=== PATIENT | male | born 1965 | race Caucasian/White ===

== ENCOUNTER 2016-10-09 01:43 | Emergency (ER) | payer BC, OTHER ==
[2016-10-09 02:01] VITALS: RESP 18
[2016-10-09] MEDS ORDERED: DIPH,PERTUS(ACELL)TETVAC-LF 0.5 ML VIAL IM ONE (02:09)
[2016-10-09] MEDS ORDERED: SODIUM CHLORIDE 0.9% 1,000 ML IV STA ×2 (02:09→03:21)
[2016-10-09] MEDS ORDERED: HYDROmorphone 1 MG/ML 1 ML SYRINGE IVP STA ×3 (02:09→05:21)
[2016-10-09] MEDS ORDERED: RX INFO: IV CONTRAST WAS GIVEN 1 EACH MISC MISCELLANE PRN (02:09)
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
[2016-10-09 02:59] LABS: Basophils % (A) 0 %; CH 30.8; CHCM 32.8; Eosinophils # (A) 0.2 k/uL (0-0.7); Eosinophils % (A) 2 %; HCT 37.6 % (39.0-53.0); HGB 12.4 gm/dL (13.0-17.5); Luc # (Auto) 0.09; Luc % (Auto) 1; Lymphocytes % (A) 11 %; MCH 31.1 pg (25.0-35.0); MCV 94.2 fL (80.0-100.0); Mean Platelet Volume 7.4; Monocytes # (A) 0.4 k/uL (0-1.0); Monocytes % (A) 5 %; Neutrophils # (A) 7.5 k/uL (1.3-7.7); Neutrophils % (A) 81 %; RBC 3.99 m/uL (4.30-5.90); RDW 12.4 % (11.5-15.5); WBC 9.2 k/uL (3.8-10.6); WBC (Perox) 9.52
[2016-10-09 03:09] LABS: ALT 48 U/L (21-72); AST 36 U/L (17-59); Alkaline Phosphatase 64 U/L (38-126); Anion Gap 12 mmol/L; Blood Urea Nitrogen 33 mg/dL (9-20); Calcium 10.1 mg/dL (8.4-10.2); Carbon Dioxide 23 mmol/L (22-30); Chloride 106 mmol/L (98-107); Glucose 209 mg/dL (74-99); Non-African American GFR(MDRD) 53 (>60 ml/min/1.73 sqM); Potassium 4.1 mmol/L (3.5-5.1); Sodium 141 mmol/L (137-145); Total Bilirubin 0.8 mg/dL (0.2-1.3); Total Protein 7.5 g/dL (6.3-8.2)
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
[2016-10-09] MEDS ORDERED: ETOMIDATE 2 MG/ML 10 ML VIAL IV STA (04:28)
[2016-10-09 05:34] VITALS: PULSE 93
[2016-10-09 05:44] VITALS: BP 182/78
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
[2016-10-09 06:03] VITALS: TEMP 97.9
== END 2016-10-09 06:08 | disposition short-term general hospital (02) ==
LOC: EC 01:43
DX: S72.092A Other fracture of head and neck of left femur, initial encounter for closed fracture (principal); S32.402A Unspecified fracture of left acetabulum, initial encounter for closed fracture; S51.012A Laceration without foreign body of left elbow, initial encounter; S30.1XXA Contusion of abdominal wall, initial encounter; I10 Essential (primary) hypertension; E78.5 Hyperlipidemia, unspecified; E11.9 Type 2 diabetes mellitus without complications; Z23 Encounter for immunization; Z87.891 Personal history of nicotine dependence; Z79.84 Long term (current) use of oral hypoglycemic drugs; Z79.899 Other long term (current) drug therapy; V43.52XA Car driver injured in collision with other type car in traffic accident, initial encounter; Y92.410 Unspecified street and highway as the place of occurrence of the external cause
CPT/HCPCS: 99291; 27268; 90471; 96374; 96376 ×2; 96361 ×4; 36415; 86900; 86901; 80053; 85025; 86850; 73501; 73502; 73080; 71260; 74177; 90715; J1170; Q9967

== ENCOUNTER 2020-12-24 15:13 | Observation (INO) | payer BC, OTHER ==
[2020-12-24] MEDS ORDERED: cefTRIAXone IN SWFI 1,000 MG/10 ML SYRINGE IVP STA (15:54)
[2020-12-24] MEDS ORDERED: SODIUM CHLORIDE 0.9% 1,000 ML IV STA (15:54)
--- NOTE | 2020-12-24 16:14 | ED ---
Skin/Abscess/FB HPI - General Chief complaint: Skin/Abscess/Foreign Body Stated complaint: lump on neck Time Seen by Provider: 12/24/20 15:43 Source: patient Mode of arrival: ambulatory Limitations: no limitations - History of Present Illness Initial comments: 55-year-old male presents emergency Department with a chief complaint of neck swelling. Patient reports he noticed some neck discomfort and continues cough about one month ago. States he went to an urgent care and was given cough medicine. States her last few weeks he has developed progressive loss of his voice with no significant sore throat fever or chills. However, the swelling on the left side of his neck has continued to increase in size. Denies overlying cellulitic skin changes. Denies any difficulty swallowing or breathing. Former smoker but quit about 10 years ago. Diabetic. Denies any visual changes, headaches, one-sided weakness or paresthesias. Denies any lightheadedness or dizziness. - Related Data Home Medications Medication Instructions Recorded Confirmed Levothyroxine Sodium [Synthroid] 50 mcg PO QAM 07/12/14 07/13/14 Losartan [Cozaar] 50 mg PO QAM 07/12/14 07/13/14 Simvastatin [Zocor] 10 mg PO HS 07/12/14 07/13/14 glyBURIDE [Diabeta] 2.5 mg PO BID 07/12/14 07/13/14 metFORMIN HCL [Glucophage] 1,000 mg PO BID 07/12/14 07/13/14 Allergies Allergy/AdvReac Type Severity Reaction Status Date / Time No Known Allergies Allergy Verified 12/24/20 15:42 Review of Systems ROS Statement: Those systems with pertinent positive or pertinent negative responses have been documented in the HPI. ROS Other: All systems not noted in ROS Statement are negative. Past Medical History Past Medical History: Diabetes Mellitus, Hyperlipidemia, Hypertension Additional Past Medical History / Comment(s): HX POLYPS History of Any Multi-Drug Resistant Organisms: None Reported Past Surgical History: Orthopedic Surgery Additional Past Surgical History / Comment(s): COLONOSCOPY Past Anesthesia/Blood Transfusion Reactions: No Reported Reaction Past Psychological History: No Psychological Hx Reported Smoking Status: Former smoker Past Alcohol Use History: Daily Past Drug Use History: None Reported - Past Family History Mother Family Medical History: No Reported History General Exam Limitations: no limitations General appearance: alert, in no apparent distress Head exam: Present: atraumatic, normocephalic, normal inspection Eye exam: Present: normal appearance, PERRL, EOMI Pupils: Present: normal accommodation ENT exam: Present: normal exam, normal oropharynx (No tonsillar erythema or enlargement or exudates. Uvula midline. No Dillon's angina or peritonsillar abscess), mucous membranes moist, TM's normal bilaterally, normal external ear exam Neck exam: Present: tenderness (Tenderness in the region), full ROM, lymphadenopathy. Absent: normal inspection (Swelling on the left side of neck) Respiratory exam: Present: normal lung sounds bilaterally. Absent: respiratory distress, wheezes, rales Cardiovascular Exam: Present: regular rate, normal rhythm, normal heart sounds Extremities exam: Present: normal inspection, full ROM. Absent: tenderness Back exam: Present: normal inspection, full ROM Neurological exam: Present: alert, oriented X3 Psychiatric exam: Present: normal affect, normal mood Skin exam: Present: warm, dry, intact, normal color Course Vital Signs 12/24/20 12/24/20 12/24/20 15:40 16:42 17:00 Temperature 98.6 F Pulse Rate 102 H 83 83 Respiratory 16 16 16 Rate Blood Pressure 131/67 154/87 154/87 O2 Sat by Pulse 95 97 97 Oximetry Medical Decision Making - Medical Decision Making 55-year-old male presents emergency Department with a chief complaint of neck swelling. CT shows left-sided neck mass which could be necrotic lymph node. Abscess cannot be excluded. There is large laryngeal mass encroaching on the laryngeal [place] suspicious for tumor. This could explain the patient's changes to voice. On physical examination, no signs of tonsillar enlargement order to suggest a peritonsillar abscess. No Dillon's angina. Laboratory work is unremarkable. I will start him on Rocephin. Will admit him for further medical management and ENT consult. I discussed the case with BERT Mayer who will admit for Dr. Anderson. Case discussed with Dr. Castro. - Lab Data Result diagrams: 12/24/20 16:08 12/24/20 16:08 Lab Results 12/24/20 12/24/20 12/24/20 Range/Units 16:08 16:08 16:08 WBC 7.0 (3.8-10.6) k/uL RBC 4.66 (4.30-5.90) m/uL Hgb 14.2 (13.0-17.5) gm/dL Hct 42.8 (39.0-53.0) % MCV 92.0 (80.0-100.0) fL MCH 30.5 (25.0-35.0) pg MCHC 33.2 (31.0-37.0) g/dL RDW 12.8 (11.5-15.5) % Plt Count 214 (150-450) k/uL MPV 7.6 Neutrophils % 69 % Lymphocytes % 19 % Monocytes % 6 % Eosinophils % 4 % Basophils % 1 % Neutrophils # 4.8 (1.3-7.7) k/uL Lymphocytes # 1.3 (1.0-4.8) k/uL Monocytes # 0.4 (0-1.0) k/uL Eosinophils # 0.2 (0-0.7) k/uL Basophils # 0.0 (0-0.2) k/uL Sodium 139 (137-145) mmol/L Potassium 4.2 (3.5-5.1) mmol/L Chloride 103 (98-107) mmol/L Carbon Dioxide 26 (22-30) mmol/L Anion Gap 10 mmol/L BUN 21 H (9-20) mg/dL Creatinine 1.24 (0.66-1.25) mg/dL Est GFR (CKD-EPI)AfAm 75 (>60 ml/min/1.73 sqM) Est GFR (CKD-EPI)NonAf 65 (>60 ml/min/1.73 sqM) Glucose 165 H (74-99) mg/dL Plasma Lactic Acid Kiran 1.2 (0.7-2.0) mmol/L Calcium 9.7 (8.4-10.2) mg/dL Total Bilirubin 0.7 (0.2-1.3) mg/dL AST 22 (17-59) U/L ALT 18 (4-49) U/L Alkaline Phosphatase 97 (38-126) U/L Total Protein 7.4 (6.3-8.2) g/dL Albumin 4.4 (3.5-5.0) g/dL Disposition Clinical Impression: Neck mass Disposition: ADMITTED IP TO THIS HOSP Condition: Good Is patient prescribed a controlled substance at d/c from ED?: No Referrals: Bob Mcginnis MD [Primary Care Provider] - 1-2 days Time of Disposition: 17:45
[2020-12-24 16:22] LABS: Basophils % (A) 1 %; Eosinophils # (A) 0.2 k/uL (0-0.7); Eosinophils % (A) 4 %; HCT 42.8 % (39.0-53.0); HGB 14.2 gm/dL (13.0-17.5); Lymphocytes # (A) 1.3 k/uL (1.0-4.8); Lymphocytes % (A) 19 %; MCH 30.5 pg (25.0-35.0); MCHC 33.2 g/dL (31.0-37.0); Mean Platelet Volume 7.6; Monocytes # (A) 0.4 k/uL (0-1.0); Monocytes % (A) 6 %; Neutrophils # (A) 4.8 k/uL (1.3-7.7); Neutrophils % (A) 69 %; Platelet Count 214 k/uL (150-450); RBC 4.66 m/uL (4.30-5.90); RDW 12.8 % (11.5-15.5)
[2020-12-24 16:28] LABS: Albumin 4.4 g/dL (3.5-5.0); Calcium 9.7 mg/dL (8.4-10.2); Potassium 4.2 mmol/L (3.5-5.1); Total Bilirubin 0.7 mg/dL (0.2-1.3); Total Protein 7.4 g/dL (6.3-8.2)
--- NOTE | 2020-12-24 17:15 | CT ---
EXAMINATION TYPE: CT soft tissue neck w con DATE OF EXAM: 12/24/2020 COMPARISON: None HISTORY: left sided neck swelling CT DLP: 217.5 mGycm Automated exposure control for dose reduction was used. CONTRAST: Performed with IV Contrast, patient injected with 100 mL of Isovue 300. Images obtained from the thoracic inlet to the top of the frontal sinuses with IV contrast. Thyroid gland is symmetric. There is opacification of the carotid arteries and jugular veins. There i s arterial flow in the vertebral arteries. There is a low density irregular mass that measures 4.8 x 3.7 cm in the anterior neck on the left side. This appears to have central fluid component and the wa ll is irregular measuring up to 8 mm. This is elevating the sternocleidomastoid mastoid muscle. There is symmetric normal appearance of the submandibular salivary glands. There is asymmetric increased s oft tissue density in the larynx on the left side and soft tissue density seen in the left side laryn geal ventricle. This mass measures 4.8 x 1.9 cm. There are some destructive changes seen in the adjac ent thyroid cartilage ossification. The parotid glands are symmetric. Some thickening of the soft palate and the adenoids. There is narro wing of the nasopharyngeal airway. There is fairly normal aeration of the paranasal sinuses. There is normal aeration of the mastoid sin uses. The temporal bones are intact. The cervical vertebra have normal alignment. There is degenerative spur formation anteriorly in the l ower cervical spine. There is no compression fracture. Facet joints are intact. The tonsils are joshua l in size. IMPRESSION: Large low density left side neck mass could be a necrotic lymph node. Abscess not excluded. There is large laryngeal mass encroaching on the laryngeal airway suspicious for tumor.
[2020-12-24] MEDS ORDERED: NALOXONE 0.4 MG/ML 1 ML VIAL IV PRN (17:41)
[2020-12-24] MEDS: SODIUM CHLORIDE 0.9% 1,000 ML IV SCH (19:22)
[2020-12-24 23:38] LABS: Glucose,Whole Blood 237 mg/dL (75-99)
[2020-12-24] MEDS ORDERED: ONDANSETRON 4 MG/2 ML VIAL IVP PRN (23:43)
[2020-12-24] MEDS ORDERED: LORazepam 2 MG/ML INJ IV PRN ×3 (23:44)
[2020-12-24] MEDS ORDERED: ATORVASTATIN 10 MG TAB PO SCH (23:45)
[2020-12-25] MEDS ORDERED: INSULIN DETEMIR (LEVEMIR) 100 UNIT/ML SYR SQ SCH
[2020-12-25] MEDS: INSULIN ASPART (NovoLOG) 100 UNIT/ML VIAL SQ SCH ×3 (00:13→13:14)
[2020-12-25] MEDS: HYDROmorphone 0.5 MG/0.5 ML SYRINGE IVP PRN ×3 (00:13→13:16)
[2020-12-25 07:16] LABS: Glucose,Whole Blood 79 mg/dL (75-99)
[2020-12-25] MEDS: SODIUM CHLORIDE 0.9% 1,000 ML IV SCH (08:38)
[2020-12-25] MEDS ORDERED: THIAMINE 100 MG TAB PO SCH (09:00)
[2020-12-25 09:42] LABS: Basophils % (A) 0 %; Eosinophils # (A) 0.2 k/uL (0-0.7); Eosinophils % (A) 4 %; HCT 39.3 % (39.0-53.0); HGB 12.8 gm/dL (13.0-17.5); Lymphocytes # (A) 1.2 k/uL (1.0-4.8); Lymphocytes % (A) 19 %; MCH 30.3 pg (25.0-35.0); MCHC 32.5 g/dL (31.0-37.0); MCV 93.2 fL (80.0-100.0); Mean Platelet Volume 7.7; Monocytes # (A) 0.3 k/uL (0-1.0); Monocytes % (A) 5 %; Neutrophils # (A) 4.2 k/uL (1.3-7.7); Neutrophils % (A) 70 %; Platelet Count 180 k/uL (150-450); RBC 4.22 m/uL (4.30-5.90); RDW 12.7 % (11.5-15.5)
[2020-12-25 10:04] LABS: African American GFR (CKD) 83 (>60 ml/min/1.73 sqM); Anion Gap 6 mmol/L; Blood Urea Nitrogen 21 mg/dL (9-20); Calcium 8.7 mg/dL (8.4-10.2); Carbon Dioxide 28 mmol/L (22-30); Chloride 104 mmol/L (98-107); Glucose 159 mg/dL (74-99); Non-African American GFR(CKD) 72 (>60 ml/min/1.73 sqM); Potassium 3.9 mmol/L (3.5-5.1); Sodium 138 mmol/L (137-145)
[2020-12-25 11:05] LABS: Glucose,Whole Blood 232 mg/dL (75-99)
[2020-12-25 11:34] VITALS: BP 137/69; PULSE 71; RESP 20; TEMP 98.7
[2020-12-25] MEDS ORDERED: PIOGLITAZONE 30 MG TAB PO SCH (13:30)
[2020-12-25] MEDS ORDERED: [UNRECOGNIZED DRUG - OTHER] PO SCH (13:30)
[2020-12-25] MEDS ORDERED: METFORMIN HCL PO SCH (13:30)
[2020-12-25] MEDS ORDERED: DAPAGLIFLOZIN PO SCH (13:30)
--- NOTE | 2020-12-25 15:07 | P.GSCN ---
History of Present Illness Consult date: 12/25/20 History of present illness: CHIEF COMPLAINT: Neck mass HISTORY OF PRESENT ILLNESS: This is a 55-year-old male with prior history of smoking quit about 10 years ago, diabetes mellitus, hyperlipidemia and hypertension. Patient presents to emergency room with complaints of neck swelling and mass. He states he noticed increase in his left neck swelling started about 2 months ago. He has been having pain in his neck. He also reports progressive loss of his voice and his been having a cough. He has become concerned since the left side of his neck continues to increase in size. Denies any cellulitis type changes of the skin at the neck. Denies any fever chills or sweats. Denies any weight loss. PAST MEDICAL HISTORY: See list. PAST SURGICAL HISTORY: See list. MEDICATIONS: See list. ALLERGIES: See list. SOCIAL HISTORY: No illicit drug use. REVIEW OF SYSTEMS: CONSTITUTIONAL: Denies fever or chills. HEENT: Denies blurred vision, vision changes, or eye pain. Denies hemoptysis CARDIOVASCULAR: Denies chest pain or pressure. RESPIRATORY: No shortness of breath. GASTROINTESTINAL: Denies any nausea or vomiting. Denies any change in bowel habits HEMATOLOGIC: Denies bleeding disorders. GENITOURINARY: Denies any blood in urine or increased urinary frequency. SKIN: Denies pruitis. Denies rash. PHYSICAL EXAM: VITAL SIGNS: Reviewed GENERAL: Well-developed in no acute distress. HEENT: Patient has large swelling noted on the left side of his neck. No discoloration of the skin. Tender with palpation. No sclera icterus. Extraocular movements grossly intact. Moist buccal mucosa. Head is atraumatic, normocephalic. No nasal drainage. ABDOMEN: Soft. Nondistended. Nontender NEUROLOGIC: Alert and oriented. Cranial nerves II through XII grossly intact. LABORATORY DATA: IMAGING: Computed tomography scan of the neck shows large low-density left-sided neck mass could be a necrotic lymph node. Abscess not excluded. There is large laryngeal mass encroaching on the laryngeal airway suspicious for tumor. ASSESSMENT: 1. 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 Signing provider agrees with the documented findings, assessment, and plan of care. Past Medical History Past Medical History: Diabetes Mellitus, Hyperlipidemia, Hypertension, Thyroid Disorder Additional Past Medical History / Comment(s): HX POLYPS History of Any Multi-Drug Resistant Organisms: None Reported Past Surgical History: Orthopedic Surgery Additional Past Surgical History / Comment(s): COLONOSCOPY Past Anesthesia/Blood Transfusion Reactions: No Reported Reaction Past Psychological History: Depression Smoking Status: Former smoker Past Alcohol Use History: Daily Additional Past Alcohol Use History / Comment(s): QUIT SMOKING APPROX 2009, SMOKED APPROX 35 YRS. Admits to drinking beers daily Past Drug Use History: None Reported - Past Family History Mother Family Medical History: No Reported History Medications and Allergies Home Medications Medication Instructions Recorded Confirmed Type Simvastatin [Zocor] 10 mg PO HS 07/12/14 12/24/20 History Dapagliflozin/Metformin HCl 1 tab PO BID 12/24/20 12/24/20 History [Xigduo Xr 5 mg-500 mg Tablet] Dulaglutide [Trulicity] 1.5 mg SQ MO 12/24/20 12/24/20 History Ferrous Sulfate [Iron] 325 mg PO DAILY 12/24/20 12/24/20 History Insulin Glargine,Hum.rec.anlog 20 unit SQ HS 12/24/20 12/24/20 History [Lantus Solostar] Insulin Lispro [humaLOG Kwikpen] 5 unit SQ AC-TID 12/24/20 12/24/20 History Insulin Lispro [humaLOG Kwikpen] See Protocol SQ AC-TID 12/24/20 12/24/20 His tory Levothyroxine Sodium [Synthroid] 25 mcg PO DAILY 12/24/20 12/24/20 History Losartan [Cozaar] 25 mg PO DAILY 12/24/20 12/24/20 History Pioglitazone [Actos] 30 mg PO DAILY 12/24/20 12/24/20 History Allergies Allergy/AdvReac Type Severity Reaction Status Date / Time No Known Allergies Allergy Verified 12/24/20 17:50 Surgical - Exam Vital Signs Temp Pulse Resp BP Pulse Ox 98.6 F 102 H 16 131/67 95 12/24/20 15:40 12/24/20 15:40 12/24/20 15:40 12/24/20 15:40 12/24/20 15:40 Results - Labs 12/25/20 09:12/25/20 09:04 Abnormal Lab Results - Last 24 Hours (Table) 12/24/20 12/24/20 12/25/20 Range/Units 16:08 23:36 09:04 RBC 4.22 L (4.30-5.90) m/uL Hgb 12.8 L (13.0-17.5) gm/dL BUN 21 H (9-20) mg/dL Glucose 165 H (74-99) mg/dL POC Glucose (mg/dL) 237 H (75-99) mg/dL 12/25/20 12/25/20 Range/Units 09:04 11:03 RBC (4.30-5.90) m/uL Hgb (13.0-17.5) gm/dL BUN 21 H (9-20) mg/dL Glucose 159 H (74-99) mg/dL POC Glucose (mg/dL) 232 H (75-99) mg/dL Diabetes panel 12/24/20 12/25/20 Range/Units 16:08 09:04 Sodium 139 138 (137-145) mmol/L Potassium 4.2 3.9 (3.5-5.1) mmol/L Chloride 103 104 (98-107) mmol/L Carbon Dioxide 26 28 (22-30) mmol/L BUN 21 H 21 H (9-20) mg/dL Creatinine 1.24 1.13 (0.66-1.25) mg/dL Glucose 165 H 159 H (74-99) mg/dL Calcium 9.7 8.7 (8.4-10.2) mg/dL AST 22 (17-59) U/L ALT 18 (4-49) U/L Alkaline Phosphatase 97 (38-126) U/L Total Protein 7.4 (6.3-8.2) g/dL Albumin 4.4 (3.5-5.0) g/dL Calcium panel 12/24/20 12/25/20 Range/Units 16:08 09:04 Calcium 9.7 8.7 (8.4-10.2) mg/dL Albumin 4.4 (3.5-5.0) g/dL Pituitary panel 12/24/20 12/25/20 Range/Units 16:08 09:04 Sodium 139 138 (137-145) mmol/L Potassium 4.2 3.9 (3.5-5.1) mmol/L Chloride 103 104 (98-107) mmol/L Carbon Dioxide 26 28 (22-30) mmol/L BUN 21 H 21 H (9-20) mg/dL Creatinine 1.24 1.13 (0.66-1.25) mg/dL Glucose 165 H 159 H (74-99) mg/dL Calcium 9.7 8.7 (8.4-10.2) mg/dL Adrenal panel 12/24/20 12/25/20 Range/Units 16:08 09:04 Sodium 139 138 (137-145) mmol/L Potassium 4.2 3.9 (3.5-5.1) mmol/L Chloride 103 104 (98-107) mmol/L Carbon Dioxide 26 28 (22-30) mmol/L BUN 21 H 21 H (9-20) mg/dL Creatinine 1.24 1.13 (0.66-1.25) mg/dL Glucose 165 H 159 H (74-99) mg/dL Calcium 9.7 8.7 (8.4-10.2) mg/dL Total Bilirubin 0.7 (0.2-1.3) mg/dL AST 22 (17-59) U/L ALT 18 (4-49) U/L Alkaline Phosphatase 97 (38-126) U/L Total Protein 7.4 (6.3-8.2) g/dL Albumin 4.4 (3.5-5.0) g/dL
[2020-12-25] MEDS ORDERED: INSULIN ASPART (NovoLOG) 100 UNIT/ML VIAL SQ SCH (17:30)
[2020-12-26] MEDS ORDERED: LEVOTHYROXINE 25 MCG TAB PO SCH (06:30)
--- NOTE | 2020-12-26 07:10 | CONS ---
CONSULTATION DATE OF CONSULTATION: 12/25/2020 REASON FOR CONSULTATION: Left neck mass. HISTORY OF PRESENT ILLNESS: The patient is a pleasant 55-year-old male, who is a nonsmoker, who was admitted via the [facility] for evaluation of left neck swelling. The patient states that for approximately 1 month he has noticed increasing neck discomfort and swelling, especially with respect to the left side of the neck and a continuous cough for approximately 1 month. He went to an urgent care center and was given antibiotics and a cough medication. However, his symptoms did not resolve and he developed progressive hoarseness, but he denies any significant sore throat, dysphagia, fever, or chills. The swelling on the left side of the neck has continued to increase in size. He states that he quit smoking approximately 10 years ago and has not used any tobacco products since that time. He also stated that he has a history of having large cystic lesions that have occurred in various parts of his body including his chest, abdomen, back, and rectum. At the present time, he is in no acute distress. He was admitted and placed on intravenous antibiotics prophylactically. A CT scan was performed and it showed evidence of a large 4 x 8 x 3.7 cm mass in the anterior compartment of the left side of the neck. There was a central fluid component to this mass and there also was a mass that appeared to be encroaching on the larynx/laryngeal ventricle on the left side. This second mass measured 4.8 x 1.9 cm. The patient's white cell count was within normal limits and he was afebrile at the time that he was admitted to the hospital for further evaluation. ALLERGIES: Past medical history reveals that he has no known allergies to medications. MEDICATIONS: His current medications include Synthroid, Cozaar , Zocor, Diabeta, Glucophage. REVIEW OF SYSTEMS: CARDIOVASCULAR: Positive for hypertension. RESPIRATORY: Negative. GASTROINTESTINAL: Negative. METABOLIC ENDOCRINE: Positive for hypothyroidism, type 2 diabetes mellitus and hypercholesterolemia. The remainder of review of systems is unremarkable. PHYSICAL EXAMINATION: This patient is a 55-year-old male who is alert, cooperative and well-oriented to time and place. He is in no acute distress at this time. HEENT: Examination shows patient is normocephalic. Tympanic membranes are normal. Middle ear spaces are free of any fluid or infection. Pupils equal, round, react to light and accommodation. Extraocular movements are within normal limits. Intranasal examination reveals moderate septal deviation to the left with compensatory hypertrophy of inferior turbinates and a moderate amount of clear mucus on the mucous membranes and draining down the posterior pharynx. Cursory examination of the oropharynx is unremarkable. Deep palpation of the neck reveals patient has a large 4-5 cm mass which is firm, but not fluctuant, well circumscribed, slightly tender, and appears to be located in the anterior compartment of the left side of the neck and also appears to be elevating the left sternomastoid muscle. No other suspicious neck masses are noted. Cranial nerves 2-12. The remainder of the head and neck exam is unremarkable. CHEST CARDIOVASCULAR: Both lung condon are clear to percussion and auscultation. Patient is in regular sinus rhythm S1, S2 are present. No murmurs, S3s or S4s. ABDOMEN: There is no evidence any masses, megaly or tenderness. The abdomen is soft. SKIN: Unremarkable. Musculoskeletal, neurological and the remainder of physical exam is unremarkable. ASSESSMENT: Left neck mass, tumor versus cystic lesion. PLAN: This patient has somewhat unusual symptoms. His presentation would immediately draw one towards the conclusion that he has a large malignancy in the left side of his neck. However, because of the rapid nature with which this mass occurred, and the lack of certain symptoms such is referred otalgia, dysphagia, significant neck pain, I am not sure whether this is an actual malignancy. Unfortunately, I am not able to do an indirect laryngoscopy on this patient in the hospital setting. The CT scan does show evidence of a fluid center, but this does not necessarily mean an abscess. Certainly, the patient's normal white count and the fact that he is afebrile would someone rule against this. However, even though it has been 10 years since the patient has smoked, until further information is obtained, one has to assume that this most likely represents some type of malignancy and proceed from that point. his hoarseness may be due to pressure on the larynx or may represent a paralyzed vocal cord. A ct scan of the chest may be helpful. I have advised the patient that he will require a suspension microlaryngoscopy, possible biopsy of any lesions that are seen in the hypopharynx or the larynx. In addition to this with respect to the neck mass, this will either require a needle biopsy or an open incisional biopsy or possible excisional removal. If in fact it is a necrotic lymph node, then certainly the treatment would be to remove that mass. Unfortunately, because the patient has Medicaid and because I do not have a Medicaid number, I am not able to see this patient on a outpatient basis. Furthermore,I will be on vacation for the next two weeks. The patient has been seen at [facility] for other issues in the past and therefore I have suggested to him that it would be a good idea for him to be referred by his family doctor to the ENT Department at [facility] for further evaluation. Because his symptoms are somewhat unusual, I feel that this would be the best way to proceed with obtaining a definitive diagnosis in this gentleman. Certainly, one has to consider the possibility of a tumor/malignancy as a primary concern. I want to take this opportunity to thank you for allowing me to assist in the care of your patient. If I can be of any further assistance, please feel free to contact my office. From an ENT standpoint, this patient could be discharged home and scheduled at [facility] on an outpatient basis. I do not feel it is necessary to send him home any type of antibiotic regimen. MMODL / IJN: [id number] / ANNALEE
[2020-12-26] MEDS ORDERED: LOSARTAN 25 MG TAB PO SCH (09:00)
[2020-12-26] MEDS ORDERED: ENOXAPARIN 40 MG/0.4 ML SYRINGE SQ SCH (09:00)
[2020-12-26] MEDS ORDERED: FERROUS SULFATE 325 MG TAB PO SCH (09:00)
--- NOTE | 2020-12-27 14:14 | P.HPIM ---
History of Present Illness H&P Date: 12/25/20 Patient is a pleasant 55-year-old male was seen in PCPs office because of poor since her voice which been going on for about 2 months and was having neck swelling found to have necrotic lymph node was subsequently and here. Patient was admitted with ENT consultation. Patient is also found to have a lesion in the larynx and his necrotic lymph nodes in the left side the neck. 4 X8x 3.7cm mass in the anterior compartment of the left side of the neck and there is another mass in the larynx which is about 4.8 X 1.9 cm he and the recommended referral to [facility] ENT an outpatient basis. Patient the also had elevated creatinine 1.24 may repeat the dictated improved with IV fluids. REVIEW OF SYSTEMS: CONSTITUTIONAL: No fever, no malaise, no fatigue. HEENT: No recent visual problems or hearing problems. Denied any sore throat. CARDIOVASCULAR: No chest pain, orthopnea, PND, no palpitations, no syncope. PULMONARY: No shortness of breath, no cough, no hemoptysis. GASTROINTESTINAL: No diarrhea, no nausea, no vomiting, no abdominal pain. NEUROLOGICAL: No headaches, no weakness, no numbness. HEMATOLOGICAL: Denies any bleeding or petechiae. GENITOURINARY: Denies any burning micturition, frequency, or urgency. MUSCULOSKELETAL/RHEUMATOLOGICAL: Denies any joint pain, swelling, or any muscle pain. ENDOCRINE: Denies any polyuria or polydipsia. The rest of the 14-point review of systems is negative. PHYSICAL EXAMINATION: GENERAL: The patient is alert and oriented x3, not in any acute distress. Well developed, well nourished. HEENT: Pupils are round and equally reacting to light. EOMI. No scleral icterus. No conjunctival pallor. Normocephalic, atraumatic. No pharyngeal erythema. No thyromegaly. Left anterior cervical lymphadenopathy, hoarseness of voice CARDIOVASCULAR: S1 and S2 present. No murmurs, rubs, or gallops. PULMONARY: Chest is clear to auscultation, no wheezing or crackles. ABDOMEN: Soft, nontender, nondistended, normoactive bowel sounds. No palpable organomegaly. MUSCULOSKELETAL: No joint swelling or deformity. EXTREMITIES: No cyanosis, clubbing, or pedal edema. NEUROLOGICAL: Gross neurological examination did not reveal any focal deficits. SKIN: No rashes. Assessment and plan -Left anterior cervical lymphadenopathy with 2 was necrotic concern for laryngeal cancer patient will need biopsy and referral to 140 and he was provided as mentioned above -Mild acute renal failure Improved with IV fluids, prerenal azotemia from dehydr ation --Type 2 diabetes mellitus -Hypertension -Hypothyroidism Past Medical History Past Medical History: Diabetes Mellitus, Hyperlipidemia, Hypertension, Thyroid Disorder Additional Past Medical History / Comment(s): HX POLYPS History of Any Multi-Drug Resistant Organisms: None Reported Past Surgical History: Orthopedic Surgery Additional Past Surgical History / Comment(s): COLONOSCOPY Past Anesthesia/Blood Transfusion Reactions: No Reported Reaction Past Psychological History: Depression Smoking Status: Former smoker Past Alcohol Use History: Daily Additional Past Alcohol Use History / Comment(s): QUIT SMOKING APPROX 2009, SMOKED APPROX 35 YRS. Admits to drinking beers daily Past Drug Use History: None Reported - Past Family History Mother Family Medical History: No Reported History Medications and Allergies Home Medications Medication Instructions Recorded Confirmed Type Simvastatin [Zocor] 10 mg PO HS 07/12/14 12/24/20 History Dapagliflozin/Metformin HCl 1 tab PO BID 12/24/20 12/24/20 History [Xigduo Xr 5 mg-500 mg Tablet] Dulaglutide [Trulicity] 1.5 mg SQ MO 12/24/20 12/24/20 History Ferrous Sulfate [Iron] 325 mg PO DAILY 12/24/20 12/24/20 History Insulin Glargine,Hum.rec.anlog 20 unit SQ HS 12/24/20 12/24/20 History [Lantus Solostar] Insulin Lispro [humaLOG Kwikpen] 5 unit SQ AC-TID 12/24/20 12/24/20 History Insulin Lispro [humaLOG Kwikpen] See Protocol SQ AC-TID 12/24/20 12/24/20 History Levothyroxine Sodium [Synthroid] 25 mcg PO DAILY 12/24/20 12/24/20 History Losartan [Cozaar] 25 mg PO DAILY 12/24/20 12/24/20 History Pioglitazone [Actos] 30 mg PO DAILY 12/24/20 12/24/20 History Allergies Allergy/AdvReac Type Severity Reaction Status Date / Time No Known Allergies Allergy Verified 12/24/20 17:50 Results CBC & Chem 7: 12/25/20 09:04 12/25/20 09:04 Thrombosis Risk Factor Assmnt - Choose All That Apply Any of the Below Risk Factors Present?: Yes Each Factor Represents 1 point: Age 41-60 years, Obesity (BMI >25) Other Risk Factors: No Other congenital or acquired thrombophilia - If yes, enter type in comment: No Thrombosis Risk Factor Assessment Total Risk Factor Score: 2 Thrombosis Risk Factor Assessment Level: Low Risk
--- NOTE | 2020-12-27 14:15 | P.DS ---
Providers Date of admission: 12/24/20 18:41 Attending physician: Pete Anderson Consults: 12/24/20 17:42 Consult Physician Routine Consulting Provider: Lonnie Torres Consult Reason/Comments: neck mass Do you want consulting provider notified?: Yes 12/25/20 13:20 Consult Physician Routine Consulting Provider: Antoni Lemons Consult Reason/Comments: Lymphadenopthy Do you want consulting provider notified?: Yes Primary care physician: Bob Mcginnis Hospital Course: Patient was discharged with referral to ENT at [facility] for lymph node or laryngeal mass biopsy. Patient was given Medrol Dosepak because of his hoarseness to his swelling and edema of the larynx. Patient Condition at Discharge: Good Plan - Discharge Summary Discharge Rx Participant: Yes New Discharge Prescriptions: No Action Simvastatin [Zocor] 10 mg PO HS Insulin Lispro [humaLOG Kwikpen] 5 unit SQ AC-TID Insulin Glargine,Hum.rec.anlog [Lantus Solostar] 20 unit SQ HS Losartan [Cozaar] 25 mg PO DAILY Levothyroxine Sodium [Synthroid] 25 mcg PO DAILY Ferrous Sulfate [Iron] 325 mg PO DAILY Dulaglutide [Trulicity] 1.5 mg SQ MO Insulin Lispro [humaLOG Kwikpen] See Protocol SQ AC-TID Dapagliflozin/Metformin HCl [Xigduo Xr 5 mg-500 mg Tablet] 1 tab PO BID Pioglitazone [Actos] 30 mg PO DAILY Discharge Medication List Simvastatin [Zocor] 10 mg PO HS 07/12/14 [History] Dapagliflozin/Metformin HCl [Xigduo Xr 5 mg-500 mg Tablet] 1 tab PO BID 12/24/20 [History] Dulaglutide [Trulicity] 1.5 mg SQ MO 12/24/20 [History] Ferrous Sulfate [Iron] 325 mg PO DAILY 12/24/20 [History] Insulin Glargine,Hum.rec.anlog [Lantus Solostar] 20 unit SQ HS 12/24/20 [History] Insulin Lispro [humaLOG Kwikpen] 5 unit SQ AC-TID 12/24/20 [History] Insulin Lispro [humaLOG Kwikpen] See Protocol SQ AC-TID 12/24/20 [History] Levothyroxine Sodium [Synthroid] 25 mcg PO DAILY 12/24/20 [History] Losartan [Cozaar] 25 mg PO DAILY 12/24/20 [History] Pioglitazone [Actos] 30 mg PO DAILY 12/24/20 [History] Follow up Appointment(s)/Referral(s): Bob Mcginnis MD [Primary Care Provider] - 1-2 days (call for follow up appt) Patient Instructions/Handouts: Hydrocodone/Acetaminophen (By mouth), Methylprednisolone (By mouth) Discharge Disposition: HOME SELF-CARE Care Plan Goals (MU): patient to see ENT at [facility]
--- NOTE | 2020-12-28 20:15 | P.HPIM ---
History of Present Illness H&P Date: 12/25/20 This is a pleasant 55 year old male who presented to the emergency department with a possible neck mass that he states he started noticing about 1-2 months ago and has progressively increased in size since then. Patient states he had a cough about one month ago and went to urgent care and instructed to follow up with primary care provider and was sent home on cough medicine. Patient states that he became more concerned as this left side neck mass became painful and tender and he noticed a hoarseness of his voice. Patient has a history of 1PPD tobacco use that he states he quit 10 years ago. Patient denies any pain or difficulty in swallowing or denies any shortness of breath or feelings of throat closing. Patient had CT of the neck in the ER showing large low-density left- sided neck mass could be a necrotic lymph node. Abscess not excluded. There is large laryngeal mass encroaching on the laryngeal airway suspicious for tumor. Review of Systems Ears: deny: decreased hearing, ear discharge, earache, tinnitus Ears, nose, mouth and throat: Reports hoarseness, Reports neck fullness/pressure, Reports neck lump, Reports voice changes Cardiovascular: Denies chest pain, Denies shortness of breath Respiratory: Denies cough Gastrointestinal: Denies abdominal pain, Denies diarrhea, Denies nausea, Denies vomiting Musculoskeletal: Reports neck stiffness Integumentary: Denies pruritus, Denies rash Psychiatric: Denies anxiety, Denies depression Hematologic/Lymphatic: Reports lymphadenopathy Past Medical History Past Medical History: Diabetes Mellitus, Hyperlipidemia, Hypertension, Thyroid Disorder Additional Past Medical History / Comment(s): HX POLYPS History of Any Multi-Drug Resistant Organisms: None Reported Past Surgical History: Orthopedic Surgery Additional Past Surgical History / Comment(s): COLONOSCOPY Past Anesthesia/Blood Transfusion Reactions: No Reported Reaction Past Psychological History: Depression Smoking Status: Former smoker Past Alcohol Use History: Daily Additional Past Alcohol Use History / Comment(s): QUIT SMOKING APPROX 2009, SMOKED APPROX 35 YRS. Admits to drinking beers daily Past Drug Use History: None Reported - Past Family History Mother Family Medical History: No Reported History Medications and Allergies Home Medications Medication Instructions Recorded Confirmed Type Simvastatin [Zocor] 10 mg PO HS 07/12/14 12/24/20 History Dapagliflozin/Metformin HCl 1 tab PO BID 12/24/20 12/24/20 History [Xigduo Xr 5 mg-500 mg Tablet] Dulaglutide [Trulicity] 1.5 mg SQ MO 12/24/20 12/24/20 History Ferrous Sulfate [Iron] 325 mg PO DAILY 12/24/20 12/24/20 History Insulin Glargine,Hum.rec.anlog 20 unit SQ HS 12/24/20 12/24/20 History [Lantus Solostar] Insulin Lispro [humaLOG Kwikpen] 5 unit SQ AC-TID 12/24/20 12/24/20 History Insulin Lispro [humaLOG Kwikpen] See Protocol SQ AC-TID 12/24/20 12/24/20 History Levothyroxine Sodium [Synthroid] 25 mcg PO DAILY 12/24/20 12/24/20 History Losartan [Cozaar] 25 mg PO DAILY 12/24/20 12/24/20 History Pioglitazone [Actos] 30 mg PO DAILY 12/24/20 12/24/20 History Allergies Allergy/AdvReac Type Severity Reaction Status Date / Time No Known Allergies Allergy Verified 12/24/20 17:50 Physical Exam Vitals: Vital Signs Temp Pulse Pulse Resp BP BP Pulse Ox 12/25/20 05:45 98.4 F 74 16 161/89 98 12/24/20 22:23 98.4 F 85 16 154/86 96 12/24/20 21:00 97.6 F 84 18 164/82 97 12/24/20 18:00 16 97 12/24/20 17:00 83 16 154/87 97 12/24/20 16:42 83 16 154/87 97 12/24/20 15:40 98.6 F 102 H 16 131/67 95 Intake and Output 12/24/20 12/25/20 12/25/20 22:59 06:59 14:59 Intake Total 650 Balance 650 Intake: Intake, IV Titration 650 Amount Sodium Chloride 0.9% 1, 650 000 ml @ 75 mls/hr IV . [id number] [facility] Rx#:[id number] Other: Voiding Method Toilet # Voids 2 Weight 77.111 kg GENERAL: This is a 55 year old male who is alert and oriented x3, not in any acute distress. Well developed, well nourished. HEENT: Pupils are round and equally reacting to light. EOMI. No scleral icterus. No conjunctival pallor. Normocephalic, atraumatic. No pharyngeal erythema. No thyromegaly. neck mass that is indurated and tender to the touch with no surrounding redness noted CARDIOVASCULAR: S1 and S2 present. No murmurs, rubs, or gallops. PULMONARY: Diminished breath sounds bilaterally with no wheezing or rhonchi noted. ABDOMEN: Soft, nontender, nondistended, normoactive bowel sounds. No palpable organomegaly. MUSCULOSKELETAL: No joint swelling or deformity. EXTREMITIES: No cyanosis, clubbing, bilateral lower extremity edema noted NEUROLOGICAL: Gross neurological examination did not reveal any focal deficits. Diffusely weak SKIN: No rashes. no petechiae. Results CBC & Chem 7: 12/25/20 09:04 12/25/20 09:04 Labs: Abnormal Lab Results - Last 24 Hours (Table) 12/24/20 12/24/20 12/25/20 Range/Units 16:08 23:36 09:04 RBC 4.22 L (4.30-5.90) m/uL Hgb 12.8 L (13.0-17.5) gm/dL BUN 21 H (9-20) mg/dL Glucose 165 H (74-99) mg/dL POC Glucose (mg/dL) 237 H (75-99) mg/dL 12/25/20 Range/Units 09:04 RBC (4.30-5.90) m/uL Hgb (13.0-17.5) gm/dL BUN 21 H (9-20) mg/dL Glucose 159 H (74-99) mg/dL POC Glucose (mg/dL) (75-99) mg/dL Thrombosis Risk Factor Assmnt - DVT/VTE Prophylaxis DVT/VTE Prophylaxis: Pharmacologic Prophylaxis ordered - Choose All That Apply Any of the Below Risk Factors Present?: Yes Each Factor Represents 1 point: Age 41-60 years, Obesity (BMI >25) Other Risk Factors: No Other congenital or acquired thrombophilia - If yes, enter type in comment: No Thrombosis Risk Factor Assessment Total Risk Factor Score: 2 Thrombosis Risk Factor Assessment Level: Low Risk Assessment and Plan Assessment: Left side neck mass possibly secondary to possible necrotic lymph node and/or large laryngeal tumor voice hoarseness secondary to above acute renal failure likely prerenal azotemia Diabetes mellitus possible chronic kidney disease secondary to diabetic nephropathy Hypertension Hyperlipidemia Remote history of nicotine dependence Daily alcohol use GI prophylaxis DVT prophylaxis Full code Plan: Patient with a left side neck mass that has been causing hoarseness of voice and ENT consulted and pending. General surgery will be consulted as well. Patient will need a possible biopsy of the mass to determine further if this is cancer. Will continue with gentle IV hydration as kidney functions slightly elevated. Repeat am labs. Time with Patient: Greater than 30
[2020-12-30] MEDS ORDERED: NON FORMULARY DRUG (Dulaglutide [Trulicity] 1.5 MG/0.5 ML Pen.Injctr) SQ SCH (13:19)
== END 2020-12-25 17:10 | disposition home or self-care (01) ==
LOC: EC 15:13 → 5NMEDONC 18:41 → INTOOBSV 18:41 → 5NMEDONC 21:16 → UNDODISIN 12-25 17:10
PROVIDERS: ADMIT Hospitalist; ATTEND Hospitalist
DX: R22.1 Localized swelling, mass and lump, neck (principal); J38.7 Other diseases of larynx; N17.9 Acute kidney failure, unspecified; E86.0 Dehydration; M54.2 Cervicalgia; R05 Cough; F32.9 Major depressive disorder, single episode, unspecified; E11.9 Type 2 diabetes mellitus without complications; E78.5 Hyperlipidemia, unspecified; J34.2 Deviated nasal septum; I10 Essential (primary) hypertension; E03.9 Hypothyroidism, unspecified; E78.00 Pure hypercholesterolemia, unspecified; Z79.899 Other long term (current) drug therapy; Z79.4 Long term (current) use of insulin; Z79.890 Hormone replacement therapy; Z87.891 Personal history of nicotine dependence; Z86.010 Personal history of colon polyps
CPT/HCPCS: 99285; 96376; 96375; 96361; 96374; 36415; 80053; 80048; 83605; 85025 ×2; 70491; G0378 ×2; J0696; J1170

== ENCOUNTER 2021-04-24 09:55 | Day surgery (SDC) | payer OTHER ==
[2021-04-24 10:20] LABS: Glucose,Whole Blood 162 mg/dL (75-99)
[2021-04-24 10:23] VITALS: BP 148/68; PULSE 94; RESP 16; TEMP 98.5
[2021-04-24] MEDS ORDERED: LIDOCAINE 1% INJ 10MG/ML (20 ML MDV) ONE (10:41)
[2021-04-24] MEDS ORDERED: LIDOCAINE 1% INJ 10MG/ML (20 ML MDV) SQ ONE (10:52)
[2021-04-24 10:55] LABS: Potassium 3.7 mmol/L (3.5-5.1)
[2021-04-24 11:04] LABS: Basophils % (A) 1 %; Eosinophils # (A) 0.1 k/uL (0-0.7); Eosinophils % (A) 1 %; HCT 38.4 % (39.0-53.0); HGB 12.7 gm/dL (13.0-17.5); Lymphocytes # (A) 1.5 k/uL (1.0-4.8); Lymphocytes % (A) 23 %; MCH 28.6 pg (25.0-35.0); MCV 86.7 fL (80.0-100.0); Mean Platelet Volume 7.7; Monocytes # (A) 0.3 k/uL (0-1.0); Monocytes % (A) 4 %; Neutrophils # (A) 4.5 k/uL (1.3-7.7); Neutrophils % (A) 70 %; Platelet Count 248 k/uL (150-450); RBC 4.43 m/uL (4.30-5.90); RDW 13.5 % (11.5-15.5); WBC 6.5 k/uL (3.8-10.6)
--- NOTE | 2021-04-24 13:38 | IR ---
PICC LINE PLACEMENT: HISTORY: Chemotherapy. PROCEDURE: Ultrasound and fluoroscopic guidance of PICC line placement. COMPLICATIONS: None ANESTHESIA: 1. 1% Lidocaine locally. FINDINGS/TECHNIQUE: The procedure was explained to the patient. The risks, complications, benefits and alternatives were discussed and any questions were answered. Informed consent was obtained. The patient was placed supine on the fluoroscopic table and prepped and draped in the usual sterile fash ion. Utilizing a 21 gauge needle and sonographic and fluoroscopic guidance, access in the left basi lic vein was achieved and there is placement of a 0.018 guidewire. The vein is patent. A 5-F. sheat h was placed over the guidewire. The guidewire and dilator were removed and a 5-F. Double lumen PICC line was placed through the sheath with the tip at the level of the SVC. The sheath was removed, th e catheter was flushed and sutured into position. The patient was stable throughout the procedure an d remained stable upon discharge from the Department of Radiology. The vein puncture was patent under ultrasound. A schmidt scale image was obtained to document patency of the vein punctured. All elements of the maximal barrier technique were utilized. FLUOROSCOPY TIME: 0.2 minutes and one image submitted IMPRESSION: Successful PICC double lumen line placement under ultrasound and fluoroscopic guidance.
== END 2021-04-24 11:23 | disposition home or self-care (01) ==
LOC: CATHCVL 09:55
PROVIDERS: ATTEND Radiology Diagnostic Radiology
DX: C13.9 Malignant neoplasm of hypopharynx, unspecified (principal); I10 Essential (primary) hypertension; E78.5 Hyperlipidemia, unspecified; E03.9 Hypothyroidism, unspecified; Z79.899 Other long term (current) drug therapy
CPT/HCPCS: 36573; 80051; 82565; 84520; 85025; C1751; C1769; J2001

== ENCOUNTER → 2021-08-20 | Outpatient (CLI) | payer OTHER ==
--- NOTE | 2021-08-20 19:19 | CT ---
EXAMINATION TYPE: CT neck chest w con DATE OF EXAM: 08/20/2021 3:45 PM COMPARISON: CT dated 12/24/2020 and 10/09/2016 HISTORY: throat ca CT DLP: 683.3 mGycm Automated exposure control for dose reduction was used. CONTRAST: CT scan of the neck is performed following with IV Contrast, patient injected with 100 mL of Isovue 3 00. Axial images are obtained, coronal and sagittal reformatted images are reviewed. FINDINGS: NECK: Status post laryngectomy, partial pharyngectomy/hypopharyngectomy with suspected myocutaneous flap/gr aft, please correlate with surgical report. Prevertebral/superior retropharyngeal soft tissue edema/f luid, possibly related to postoperative changes. Grossly unremarkable nasopharynx and oropharynx. Sof t tissue thickening is seen along the right side of the flap, possibly related to postsurgical change s however recurrent disease can't be excluded. A tracheostomy tube in place. Unremarkable parotid and submandibular salivary glands. Surgical sutures are seen along the right side of the flap/graft. Mul tiple surgical clips are seen in both sides of the neck. Patent major neck arteries. Markedly attenuated internal jugular veins bilaterally. Oval-shaped hyperdensity seen at the right si de of the lower neck measuring 8 x 14 mm which could represent a residual thyroid tissue, please katlyn elate with surgical report. Skin thickening and subcutaneous edema are seen at the upper neck bilater ally with mild soft tissue thickening along the expected location of the left sternocleidomastoid mus uriel which appears resected. Millimetric bilateral submandibular lymph nodes, nonspecific. No patholog ically enlarged lymph nodes in the neck with the limitation of the anatomical distortion. Fused right first and second ribs. Degenerative changes at C5-6 and C6-7 levels. No aggressive bone lesion. CHEST: Bilateral apical areas of pulmonary infiltration, nonspecific and could be due to inflammatory/infect ious in etiology. Similar small infiltration is also seen in the left lung base. Recommend follow-up CT scan in 2-3 months for reassessment. Grossly unremarkable remainder of the lungs. Patent central a irways. No pleural or pericardial effusion. Slight cardiomegaly. Coronary atherosclerotic calcificati ons. No pathologically enlarged lymph nodes in the chest. Irregular outlines of the kidneys. Scattere d healing fractures of the anterior aspects of the ribs bilaterally. Please relate clinically. Furthe r bone scan assessment can be considered if clinically required. IMPRESSION: Postsurgical changes in the neck as detailed above. The described areas of soft tissue thickening cou ld be related to postsurgical changes however residual/recurrent disease cannot be excluded. Recommen d correlation with surgical report. Further PET scan assessment can be considered. No pathologically enlarged lymph nodes in the neck. Scattered areas of pulmonary infiltrations as described above, not appreciated in 2017 CT scan and co uld represent an inflammatory/infectious process however other infiltrative neoplastic process can't be excluded. Recommend clinical correlation and short-term follow-up CT scan in 2-3 months for reasse ssment. Alternatively, this can be reassessed on the PET scan. Other findings as described above.
== END | disposition home or self-care (01) ==
LOC: RADCTMAIN 14:22
PROVIDERS: ATTEND Internal Medicine Hematology & Oncology
DX: C13.9 Malignant neoplasm of hypopharynx, unspecified (principal)
CPT/HCPCS: 82565; 84520; 70491; 71260; 36415; Q9967

== ENCOUNTER → 2021-09-04 | Outpatient (CLI) | payer OTHER ==
--- NOTE | 2021-09-04 18:26 | FL ---
EXAMINATION TYPE: FL single contrast barium swallow DATE OF EXAM: 09/04/2021 CLINICAL INDICATION: 55-year-old male R13.10, dysphagia. Patient with history of esophageal cancer st atus post resection of neck tumor and voice box. COMPARISON: Correlation CT 08/20/2021 Total Fluoroscopy Time: 2 minutes 5 seconds 49 images obtained. FINDINGS: Extensive postsurgical change within the neck. There is normal passage of contrast down the cervical esophagus. At the cervicothoracic junction, there is an anastomosis with contour change. Some puckeri ng here likely relates to some mucosal redundancy at the anastomosis. There is no fixed narrowing dem onstrated. Moderate tertiary processes. Contractions are demonstrated within the thoracic esophagus and recurren t severe intraesophageal reflux results in contrast to the back up to the level of the neck. The mucosa is normal and no persistent filling defect is encountered. No hiatal hernia is present. IMPRESSION: 1. Extensive post surgical change within the neck. Normal passage of contrast down the cervical esoph bravo. 2. Anastomosis with contour change at the cervicothoracic junction. Some puckering here likely relate s to some mucosal redundancy at the anastomosis. No fixed narrowing/stricture. 3. Marked esophageal dysmotility. After contrast has passed into the lower chest, contrast shoots veronica k up to the neck compatible with prominent intraesophageal reflux.
== END | disposition home or self-care (01) ==
LOC: RADUSWWP 10:51
PROVIDERS: ATTEND Otolaryngology
DX: R13.10 Dysphagia, unspecified (principal)
CPT/HCPCS: 74220

== ENCOUNTER → 2021-12-04 | Outpatient (CLI) | payer OTHER ==
--- NOTE | 2021-12-04 14:16 | CT ---
EXAMINATION TYPE: CT neck chest w con DATE OF EXAM: 12/04/2021 1:32 PM COMPARISON: CT neck 08/20/2021, 12/24/2020. HISTORY: f/u throat ca CT DLP: 881.2 mGycm Automated exposure control for dose reduction was used. CONTRAST: CT scan of the neck and chest is performed following with IV Contrast, patient injected with 80cc mL of Isovue 300. Axial images are obtained, coronal and sagittal reformatted images are reviewed. FINDINGS: NECK: Status post laryngectomy, partial pharyngectomy/hypopharyngectomy with suspected myocutaneous f lap/graft. Grossly unremarkable nasopharynx and oropharynx. Soft tissue thickening is again seen casandra g the right side of the flap likely related to postsurgical changes. A tracheostomy tube in place. Unremarkable parotid and submandibular salivary glands. Surgical suture s are seen along the right side of the flap/graft. Multiple surgical clips are seen in both sides of the neck. Patent major neck arteries. Similar markedly attenuated internal jugular veins bilaterally. Decreased size of oval-shaped hyperdensity seen at the right side of the lower neck measuring 9 mm, p reviously 14 mm. Could represent residual thyroid tissue. Correlation with surgical report is recomme nded. Skin thickening and subcutaneous edema are seen at the upper neck bilaterally with mild soft tissue t hickening along the expected location of the left sternocleidomastoid muscle which appears resected. No pathologically enlarged lymph nodes within the neck. Fused right first and second ribs. Degenerative changes at C5-6 and C6-7 levels. No aggressive bone l esion. CHEST: Nearly resolved pulmonary infiltration within the lung apices bilaterally. Similar small infiltration is also seen in the left lung base is favored to represent atelectasis. Grossly unremarkable remaind er of the lungs. Patent central airways. No pleural or pericardial effusion. Slight cardiomegaly. Coronary atheroscler otic calcifications. No pathologically enlarged lymph nodes in the chest. Healing bilateral anterolateral rib fractures. No suspicious osseous lesions. IMPRESSION: * Unchanged postsurgical changes in the neck as detailed above. Similar appearance of soft tissue th ickening at the resection site likely related to postsurgical change. * No pathologically enlarged lymph nodes in the neck. * Near resolution of bilateral apical pulmonary infiltration. * No evidence of metastatic disease within the chest.
== END | disposition home or self-care (01) ==
LOC: RADCTMAIN 12:24
PROVIDERS: ATTEND Internal Medicine Hematology & Oncology
DX: C13.9 Malignant neoplasm of hypopharynx, unspecified (principal)
CPT/HCPCS: 82565; 84520; 70491; 71260; 36415; Q9967

== ENCOUNTER → 2022-03-12 | Outpatient (CLI) | payer OTHER ==
--- NOTE | 2022-03-12 11:13 | CT ---
EXAMINATION TYPE: CT neck chest w con DATE OF EXAM: 03/12/2022 10:43 AM COMPARISON: CT neck chest 12/04/2021 HISTORY: MALIGNANT NEOPLASM OF HYPOPHARYNX CT DLP: 719.6 mGycm Automated exposure control for dose reduction was used. CONTRAST: CT scan of the neck and chest is performed following with IV Contrast, patient injected wit h 80cc mL of Isovue 300. Axial images are obtained, coronal and sagittal reformatted images are revie wed. FINDINGS: NECK: Status post laryngectomy, partial pharyngectomy/hypopharyngectomy with suspected myocutaneous flap/gr aft. Grossly unremarkable nasopharynx and oropharynx. Soft tissue thickening is again seen along the right side of the flap likely related to postsurgical changes. A tracheostomy tube in place. Unremark able parotid and submandibular salivary glands. Surgical sutures are seen along the right side of the flap/graft. Multiple surgical clips are seen in both sides of the neck. Patent major neck arteries. Similar markedly attenuated internal jugular veins bilaterally. Decreased size of oval-shaped hyperdensity seen at the right side of the lower neck measuring 8 mm, previously 9 mm. Could represent residual thyroid tissue. Correlation with surgical report is recommended. Skin thickening and subcutaneous edema are seen at the upper neck bilaterally with mild soft tissue t hickening along the expected location of the left sternocleidomastoid muscle which appears resected. No pathologically enlarged lymph nodes within the neck. Fused right first and second ribs. Degenerati ve changes at C5-6 and C6-7 levels. No aggressive bone lesion. CHEST: Results small infiltration seen in the left lung base favored to represent atelectasis. Bilateral ant erior subpleural reticular opacities are redemonstrated likely related to posttreatment changes. Vu sly unremarkable remainder of the lungs. Patent central airways. No pleural or pericardial effusion. Slight cardiomegaly. Coronary atherosclerotic calcifications. No pathologically enlarged lymph nodes in the chest. Remote bilateral anterior lateral rib fractures. No suspicious osseous lesions. Liver is diffusely hypoattenuating consistent with steatosis. IMPRESSION: 1. Unchanged postsurgical changes in the neck as detailed above. No evidence for local recurrence. 2. Similar appearance of soft tissue thickening at the resection site most consistent with postsurgi trae change. 3. No pathologically enlarged lymph nodes in the neck. 4. No evidence of metastatic disease within the chest.
== END | disposition home or self-care (01) ==
LOC: RADCTMAIN 09:44
PROVIDERS: ATTEND Internal Medicine Hematology & Oncology
DX: C13.9 Malignant neoplasm of hypopharynx, unspecified (principal); Z79.899 Other long term (current) drug therapy
CPT/HCPCS: 82565; 84520; 70491; 71260; 36415; Q9967

== ENCOUNTER → 2022-03-20 | Outpatient (CLI) | payer OTHER ==
--- NOTE | 2022-03-20 15:19 | CT ---
EXAMINATION TYPE: CT urogram wo/w con CT DLP: 2871 mGycm, Automated exposure control for dose reduction was used. DATE OF EXAM: 03/20/2022 3:05 PM COMPARISON: CT abdomen chest, pelvis most recent from 10/09/2016 CLINICAL INDICATION:Male, 56 years old with history of R31.1 Hematuria; TECHNIQUE: Urogram with imaging of the abdomen and pelvis. Coronal and sagittal reformats were performed. 2D and 3D reconstructions are performed to assist visualization of the urinary tract on a separate workstat ion. Contrast used:70 ml mL of Isovue 300 without and with IV Contrast, Oral contrast used: None. FINDINGS: GENITOURINARY: RIGHT KIDNEY AND URETER: No calculi. . No hydronephrosis or hydroureter. No renal mass or other lesio ns. No urothelial lesions: no filling defect, dilation, stricture or wall thickening. Lobulated conto ur to the kidney could represent retained lobulations. LEFT KIDNEY AND URETER: No calculi. No hydronephrosis or hydroureter. No renal mass or other lesions. No urothelial lesions: no filling defect, dilation, stricture or wall thickening. Renal sinus calcif ication is felt to be within the arterial vasculature. Lobulated contour to the kidney could represen t retained lobulations. URINARY BLADDER: Limited evaluation secondary to partial filling of the bladder with excreted IV cont rast. No calculi or obvious mass. REPRODUCTIVE: Unremarkable. ABDOMEN LIVER: Diffusely hypoattenuating, consistent with hepatic steatosis. GALLBLADDER AND BILE DUCTS: Unremarkable PANCREAS: Unremarkable. SPLEEN: Unremarkable. ADRENAL GLANDS: Unremarkable. STOMACH AND BOWEL: . No evidence of bowel obstruction. The appendix is normal. PERITONEUM: No evidence of pneumoperitoneum, free fluid, or adenopathy. VASCULATURE: No aortic aneurysm. Scattered atherosclerosis of the arterial vasculature. MUSCULOSKELETAL: No acute osseous abnormalities. Fixation changes to the left pelvis with remote inju ry to the left femur with heterotrophic calcifications present. Multilevel disc degeneration changes are present throughout the spine. SOFT TISSUE/ABDOMINAL WALL: Unremarkable. LOWER CHEST: No significant findings. IMPRESSION: 1. No evidence of urolithiasis or renal/urothelial neoplasm. 2. No evidence for upper genitourinary tract mass.
== END | disposition home or self-care (01) ==
LOC: RADCTMAIN 13:05
PROVIDERS: ATTEND Urology
DX: R31.1 Benign essential microscopic hematuria (principal)
CPT/HCPCS: 82565; 84520; 74178; 36415; 74400; Q9967

== ENCOUNTER → 2022-06-18 | Outpatient (CLI) | payer OTHER ==
--- NOTE | 2022-06-18 14:37 | CT ---
EXAMINATION TYPE: CT neck chest w con DATE OF EXAM: 06/18/2022 COMPARISON: 03/12/2022 HISTORY: f/u throat ca CT DLP: 550.7 mGycm CONTRAST: CT scan of the neck is performed with IV Contrast, patient injected with 100 mL of Isovue 300. Contrast enhanced CT of the neck was performed from the skull base through the lung apices. AIRWAY: There is masslike fullness at the level of the nasopharynx on the left seen best on images 55 -60 of 83 sequence 4. Area measures 3.0 cm in AP dimension by 2.7 cm in transverse dimension versus p rior measurement of 2.5 x 2.4 millimeters. Neoplasm not excluded. Consider direct visualization and/o r PET/CT. Again noted are changes of bilateral neck dissection with postoperative thickening seen. At the surgical beds there is no evidence for tumor recurrence Tracheostomy tube is in place. SALIVARY GLANDS: The submandibular and parotid glands are free of mass or inflammatory process. THYROID GLAND: No nodules or masses seen. LYMPH NODES: No adenopathy seen greater than 1cm. LUNG APICES: No nodule or mass is seen. OTHER: Vascular structures are patent. Mild degenerative change of the cervical spine. No abscess s een. Chronic paranasal sinusitis. IMPRESSION: 1.There is masslike fullness at the level of the nasopharynx on the left seen best on images 55-60 of 83 sequence 4. Area measures 3.0 cm in AP dimension by 2.7 cm in transverse dimension versus prior m easurement of 2.5 x 2.4 millimeters. Neoplasm not excluded. Consider direct visualization and/or PET/ CT. EXAMINATION TYPE: CT neck chest w con DATE OF EXAM: 06/18/2022 COMPARISON: 03/12/2022 HISTORY: f/u throat ca CT DLP: 550.7 mGycm Automated exposure control for dose reduction was used. CONTRAST: CT scan of the chest is performed with IV Contrast, patient injected with 100 mL of Isovue 300. FINDINGS: LUNGS: The lungs are grossly clear, there is no concerning parenchymal mass or nodule identified. T here is no pleural effusion or pneumothorax seen. The tracheobronchial tree is patent. Tracheostomy tube unchanged in position. MEDIASTINUM: There are no greater than 1 cm hilar or mediastinal lymph nodes. No pericardial effusi on is seen. Thoracic aorta is of normal caliber. The heart is not enlarged. UPPER ABDOMEN: No significant abnormality appreciated. OTHER: No additional significant abnormality is seen. IMPRESSION: 1. No evidence for metastatic disease to the chest. Overall stable appearance.
== END | disposition home or self-care (01) ==
LOC: RADCTMAIN 12:55
PROVIDERS: ATTEND Internal Medicine Hematology & Oncology
DX: C13.9 Malignant neoplasm of hypopharynx, unspecified (principal)
CPT/HCPCS: 82565; 84520; 70491; 71260; 36415; Q9967